=== PATIENT | male | born 1955 | race Caucasian/White ===

== ENCOUNTER 2023-09-01 11:51 | Outpatient (CLI) | payer MEDICARE ==
[~2023-09-01 11:51] MED LIST: Magnevist 469MG/ML 20 ML VIAL ONE
== END 2023-09-01 11:52 | disposition home or self-care (01) ==
LOC: CSHMRI 11:51
PROVIDERS: ATTEND Urology
DX: R97.20 Elevated prostate specific antigen [PSA] (principal)
CPT/HCPCS: 72197; A9579